=== PATIENT | female | born 1995 | race Caucasian/White ===

== ENCOUNTER 2017-01-14 16:40 | Emergency (ER) | payer OTHER ==
[~2017-01-14] VITALS: Wt 95.3 kg
[~2017-01-14 16:40] MED LIST: ZOFRAN ODT4 MG PO
[2017-01-14 16:50] VITALS: BP 128/75
[2017-01-14] MEDS ORDERED: ROBITUSSIN DM 105 ML PO (18:08)
[2017-01-14] MEDS ORDERED: CLARITIN10 MG PO (18:08)
== END 2017-01-14 19:03 | disposition home or self-care (01) ==
LOC: ED 16:40
DX: B34.9 Viral infection, unspecified (principal); R03.0 Elevated blood-pressure reading, without diagnosis of hypertension; Z88.8 Allergy status to other drugs, medicaments and biological substances; Z79.899 Other long term (current) drug therapy

== ENCOUNTER 2021-09-12 13:54 | Emergency (ER) | payer OTHER ==
[~2021-09-12 13:54] MED LIST changes: +CLARITIN10 MG PO; +ROBITUSSIN DM 105 ML PO
[2021-09-12 14:04] VITALS: BP 163/96
== END 2021-09-12 18:28 | disposition home or self-care (01) ==
LOC: ED 13:54
DX: S60.222A Contusion of left hand, initial encounter (principal); R51.9 Headache, unspecified; R42 Dizziness and giddiness; Z79.899 Other long term (current) drug therapy; Z88.6 Allergy status to analgesic agent; V49.59XA Passenger injured in collision with other motor vehicles in traffic accident, initial encounter; Y93.89 Activity, other specified; Y92.413 State road as the place of occurrence of the external cause; Y99.9 Unspecified external cause status